=== PATIENT | male | born 1985 | race Caucasian/White ===

== ENCOUNTER 2023-07-23 09:07 | Outpatient (CLI) | payer OTHER ==
[2023-07-23] MEDS ORDERED: Iopamidol 300 61% 100 ML VIAL FS ONE (12:45)
== END 2023-07-23 09:08 | disposition home or self-care (01) ==
LOC: CSHCT 09:07
PROVIDERS: ATTEND Physician Assistant Medical
DX: R10.84 Generalized abdominal pain (principal); K21.00 Gastro-esophageal reflux disease with esophagitis, without bleeding; R63.4 Abnormal weight loss; M89.8X8 Other specified disorders of bone, other site
CPT/HCPCS: 74177; Q9967